=== PATIENT | female | born 1995 | race Caucasian/White ===

== ENCOUNTER 2019-10-27 12:49 | Emergency (ER) | payer BC, OTHER, SELFPAY ==
[2019-10-27 12:55] VITALS: BP 129/66; PULSE 60; RESP 19; TEMP 36.7; O2SAT 99; BMI 29.0
--- NOTE | 2019-10-27 13:02 | ED_ITS ---
HPI - Chest Pain <BETO Adkins - Last Filed: 10/27/19 23:24> General Chief Complaint: Chest Pain Stated Complaint: chest pain Time Seen by Provider: 10/27/19 12:50 Source: patient Mode of arrival: Ambulatory Limitations: no limitations History of Present Illness HPI narrative: This is a 24-year-old female, nonsmoker, who presents to ED with chest pain and short of breath that has been worsening over 1 year. Patient reports she has been having exertional short of breath with running and walking up the stairs. 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 She denies recent known Covid virus exposure, fever, coughing, chills, nausea, vomiting, diaphoresis. Patient denies recent travel, taking control pills, history of blood clots, or prolonged bed rest. Patient reports usually pain is worse during at nights and she had moderately severe dull, intermittent right-sided chest pain last night and she also woke up with discomfort this morning at 9:30 a.m.. She had Kerwin fundoplication at age 12 due to acid reflux. She is currently visiting from [place] and has been quarantined herself at home. LMP current and denies concerns for . Related Data Home Medications Medication Instructions Recorded Confirmed ACETAMINOPHEN 650 mg PO PRN #0 08/02/12 Review of Systems <BETO Adkins - Last Filed: 10/27/19 23:24> Review of Systems Narrative: General: Denies fever, chills, fatigue, malaise, sweats. HEENT: Denies sinus pain, ear pain, sore throat, difficulty swallowing, dizziness. Respiratory: See HPI Cardiovascular: See HPI Gastrointestinal: Denies nausea, vomiting, abdominal pain, diarrhea, constipation, melena. : Denies dysuria, frequency, incontinence, hematuria, urinary retention. Musculoskeletal: Denies weakness, joint pain or bony pain. Skin: Denies rash, skin lesions, or other. Neurologic: Denies weakness, headache, numbness, change in speech, confusion, seizures, incoordination. Psychiatric: No concerning psychosocial issues. 12-point review of systems is negative except for those stated above. Patient History <BETO Adkins - Last Filed: 10/27/19 23:24> Medical History Acid reflux (Acute) Surgical History History of Kerwin fundoplication (Acute) Social History Smoking Status: Never smoker Smoking Status: Never smoker Exam <BETO Adkins - Last Filed: 10/27/19 23:24> Narrative Exam Narrative: GEN: Alert, oriented x 3, well appearing and nourished, and in no acute distress. Head: Normal cephalic, atraumatic. No scalp or temporal tenderness, palpable mass or rash. EYES: Pupils are equal, round, and reactive to light and accommodation. E xtraocular muscles are intact bilaterally. There is no subconjunctival hemorrhage, exudate and sclera non-icteric. ENT: Hearing grossly intact. Nose without bleeding, purulent discharge. Mucous membrane moist, no mucosal lesion. Throat without erythema, tonsillar hypertrophy or exudate. Uvula in midline, airway patent. Neck: Trachea in midline. No JVD, non-tender without lymphadenopathy. No masses or thyroid megaly. Supple, non-tender and no meningeal signs. CARDIAC: Normal regular rate and rhythm without murmurs, gallops, or rubs. No chest wall tenderness. No peripheral edema, cyanosis or pallor. Capillary refill is less than 2 seconds. RESPIRATORY: Lungs are clear to auscultate bilaterally. No cough, wheezes, rales, or rhonchi. No stridor, respiratory distress, increase work of breathing, or accessary muscle used. ABD: Abdomen soft, nontender and non-distended. No guarding or rebound tenderness to palpate. Bowel sounds are normal in all 4 quadrants. There is no palpable masses or organomegaly. EXT: Full painless ROM of all extremities with no loss of sensation, swelling, strength, effusion or edema. SKIN: Warm, dry, normal color for patient. No erythema, lesions or rash over visible areas. BACK: Nontender without deformity or crepitance. No flank tenderness. NEUROLOGICAL: Alert and oriented to place, time and person. Sensation and motor function intact bilaterally. No facial droops, dysphasia. PSYCHIATRIC: Good judgement and reason, without hallucinations, abnormal affect or abnormal behaviors during the examination. Patient is not suicidal. Initial Vital Signs Initial Vital Signs: Vital Signs Temperature 98.0 F 10/27/19 12:55 Pulse Rate 60 10/27/19 12:55 Respiratory Rate 19 10/27/19 12:55 Blood Pressure 129/66 10/27/19 12:55 Pulse Oximetry 99 10/27/19 12:55 <Elizabeth Vides MD - Last Filed: 10/28/19 07:21> Initial Vital Signs Initial Vital Signs: Vital Signs Temperature 98.0 F 10/27/19 12:55 Pulse Rate 60 10/27/19 12:55 Respiratory Rate 19 10/27/19 12:55 Blood Pressure 129/66 10/27/19 12:55 Pulse Oximetry 99 10/27/19 12:55 Scores <BETO Adkins - Last Filed: 10/27/19 23:24> GCS Hamilton coma scale eye opening: Spontaneous Hamilton coma scale verbal response: Orientated Blane coma scale motor response: Obey commands Hamilton coma scale total score: 15 HEART Score Heart Score history: Slightly Suspicious Heart Score EKG: Normal Heart Score Age: < 45 years old Heart Score risk factors: No known risk factors Heart Score troponin: < or = to normal limit Heart Score Total: 0 PERC Score Age greater than or equal to 50 years: No Heart rate greater than or equal to 100 bpm: No Room Air O2 Sat less than 95%: No Unilateral leg swelling: No Recent trauma or surgery: No Hemoptysis: No Prior PE or DVT: No Hormone Use: No Total PERC Score: 0 Wells' Criteria for PE Clinical signs and symptoms of DVT: No PE is #1 Dx or equally likely: No Heart rate > 100: No Immobilization at least 3 days or surg in previous 4 weeks: No History of PE or DVT: No Hemoptysis: No Malignancy w/Treatment within 6 months or palliative: No Wells' PE Score total: 0 Course <BETO Adkins - Last Filed: 10/27/19 23:24> Orders Ordered: Discontinued Medications Ketorolac Tromethamine (Toradol) 15 mg IV NOW ONE Stop: 10/27/19 14:05 Last Admin: 10/27/19 14:20 Dose: 15 mg Documented by: ALESHIA Ketorolac Tromethamine (Toradol) 15 mg IV NOW ONE Stop: 10/27/19 14:15 Last Admin: 10/27/19 15:23 Dose: Not Given Documented by: DIANNA Pantoprazole Sodium (Protonix) 40 mg IV NOW ONE Stop: 10/27/19 14:05 Last Admin: 10/27/19 14:24 Dose: 40 mg Documented by: ALESHIA Vital Signs Vital signs: Vital Signs - 8 hr 10/27/19 12:55 10/27/19 13:44 Temperature 98.0 F Pulse Rate 60 58 L Respiratory Rate 19 12 Blood Pressure 129/66 Blood Pressure [Right Arm] 130/61 Pulse Oximetry 99 100 <Elizabeth Vides MD - Last Filed: 10/28/19 07:21> Orders Ordered: Discontinued Medications Ketorolac Tromethamine (Toradol) 15 mg IV NOW ONE Stop: 10/27/19 14:05 Last Admin: 10/27/19 14:20 Dose: 15 mg Documented by: ALESHIA Ketorolac Tromethamine (Toradol) 15 mg IV NOW ONE Stop: 10/27/19 14:15 Last Admin: 10/27/19 15:23 Dose: Not Given Documented by: DIANNA Pantoprazole Sodium (Protonix) 40 mg IV NOW ONE Stop: 10/27/19 14:05 Last Admin: 10/27/19 14:24 Dose: 40 mg Documented by: ALESHIA Vital Signs Vital signs: Vital Signs - 8 hr 10/27/19 12:55 10/27/19 13:44 Temperature 98.0 F Pulse Rate 60 58 L Respiratory Rate 19 12 Blood Pressure 129/66 Blood Pressure [Right Arm] 130/61 Pulse Oximetry 99 100 MDM - Chest Pain <BETO Adkins - Last Filed: 10/27/19 23:24> Differential Diagnosis Differential diagnosis: Likely atypical chest pain, costochondritis and other (GERD, anxiety, electrolytes imbalance) Medical Records Data Attestation: I reviewed the patient's medical records. Lab Data Attestation: I reviewed the patient's lab results. Result diagrams: 10/27/19 13:00 10/27/19 13:00 Labs: Lab Results 10/27/19 10/27/19 10/27/19 Range/Units 13:00 13:00 13:00 WBC 7.6 (4.5-11.0) X10^3/uL RBC 4.78 (4.0-5.2) X10^6/uL Hgb 14.9 (12.0-16.0) g/dL Hct 44.0 (36-46) % MCV 92.0 (80-100) fL MCH 31.1 (26-34) PG MCHC 33.8 (30-36) % RDW 13.3 (11.6-14.8) % Plt Count 206 (150-400) X10^3/uL Neut % (Auto) 69.4 (50-75) % Lymph % (Auto) 22.0 L (25-40) % Carolina % (Auto) 7.6 (3-14) % Eos % (Auto) 0.6 L (2-4) % Baso % (Auto) 0.4 (0-2) % Neut # (Auto) 5300 (0148-2207) /uL Lymph # (Auto) 1700 (2915-3923) /uL Carolina # (Auto) 600 (0-900) /uL Eos # (Auto) 0 (0-450) /uL Baso # (Auto) 0 (0-100) /uL PT 12.7 (10.1-12.7) SECONDS INR 1.1 (0.9-1.3) APTT 34 (26.4-36.2) SECONDS Sodium 140 (137-145) mmol/L Potassium 3.8 (3.4-5.1) mmol/L Chloride 103 (98-107) mmol/L Carbon Dioxide 26 (22-32) mmol/L BUN 11 (7-17) mg/dL Creatinine 0.65 (0.52-1.04) mg/dL Estimated GFR > 60.0 (>60) mL/min BUN/Creatinine Ratio 16.9 (6-22) Glucose 94 (70-100) mg/dL Calcium 9.9 (8.4-10.2) mg/dL Magnesium (1.6-2.3) mg/dL Total Bilirubin 0.8 (0.2-1.3) mg/dL AST 28 (14-36) IU/L ALT 17 (<35) IU/L Alkaline Phosphatase 64 (38-126) U/L Total Creatine Kinase 54 (30-135) U/L CK-MB (CK-2) TNP CK-MB (CK-2) Rel Index TNP Troponin I < 0.012 (0.01-0.034) ng/mL Total Protein 8.4 H (6.3-8.2) g/dL Albumin 4.9 (3.5-5.0) g/dL Globulin 3.5 (1.7-4.1) g/dL Albumin/Globulin Ratio 1.4 (1.0-2.8) Lipase 96 (23-300) U/L 10/27/19 Range/Units 13:00 WBC (4.5-11.0) X10^3/uL RBC (4.0-5.2) X10^6/uL Hgb (12.0-16.0) g/dL Hct (36-46) % MCV (80-100) fL MCH (26-34) PG MCHC (30-36) % RDW (11.6-14.8) % Plt Count (150-400) X10^3/uL Neut % (Auto) (50-75) % Lymph % (Auto) (25-40) % Carolina % (Auto) (3-14) % Eos % (Auto) (2-4) % Baso % (Auto) (0-2) % Neut # (Auto) (8664-3201) /uL Lymph # (Auto) (5086-7870) /uL Carolina # (Auto) (0-900) /uL Eos # (Auto) (0-450) /uL Baso # (Auto) (0-100) /uL PT (10.1-12.7) SECONDS INR (0.9-1.3) APTT (26.4-36.2) SECONDS Sodium (137-145) mmol/L Potassium (3.4-5.1) mmol/L Chloride (98-107) mmol/L Carbon Dioxide (22-32) mmol/L BUN (7-17) mg/dL Creatinine (0.52-1.04) mg/dL Estimated GFR (>60) mL/min BUN/Creatinine Ratio (6-22) Glucose (70-100) mg/dL Calcium (8.4-10.2) mg/dL Magnesium 2.2 (1.6-2.3) mg/dL Total Bilirubin (0.2-1.3) mg/dL AST (14-36) IU/L ALT (<35) IU/L Alkaline Phosphatase (38-126) U/L Total Creatine Kinase (30-135) U/L CK-MB (CK-2) CK-MB (CK-2) Rel Index Troponin I (0.01-0.034) ng/mL Total Protein (6.3-8.2) g/dL Albumin (3.5-5.0) g/dL Globulin (1.7-4.1) g/dL Albumin/Globulin Ratio (1.0-2.8) Lipase (23-300) U/L Imaging Data Chest x-ray: Radiologist's Impression: [address] [address] XRay Report Signed Patient: Yanet Cross [facility]#: [id number] : 1995Acct:[id number] Age/Sex: te of Service: 10/27/19 Loc: ED Accession Number: [id number] Procedure: XR chest 1V Ordering Provider: Giancarlo Leos PROCEDURE: XR CHEST 1V INDICATIONS: chest pain TECHNIQUE: One view of the chest was acquired. COMPARISON: None. FINDINGS: Surgical changes and devices: None. Lungs and pleura: Lungs are clear. No pleural effusions or pneumothorax. Mediastinum: Mediastinal contours appear normal. Heart size is normal. Bones and chest wall: No suspicious bony lesions. Overlying soft tissues appear unremarkable. IMPRESSION: No acute cardiopulmonary pathology. Dictated by: Mike Nobles M.D. on 10/27/2019 at 13:14 Approved by: Mike Nobles M.D. on 10/27/2019 at 13:16 ECG Data Attestation: I personally reviewed and interpreted this ECG as follows: Prior ECG tracings: not available for review Interpretation: Normal sinus rhythm rate at 56. [place] interval normal, QRS duration 96, QT/QTC 423/416. No ST elevation or depression noted MDM Narrative Medical decision making narrative: This is a 24-year-old female who has history of eating disorders (anorexia) who presents to ED with chest/epigastric pain for over a year who presents to ED with worsening symptoms for last 1-2 weeks. Patient reports she also has a short of breath with exertion and she exercise regularly with running. Patient denies other cardiac associated symptoms or recent illness, know exposure to Covid, diarrhea, fever, cough, myalgia. Patient reports her symptoms worse at nights. Has history of Kerwin fundoplication at age 12. EKG shows normal sinus rhythm rate in [address] elevation or depression. Cardiac enzymes were negative. Chest x-ray was negative for acute findings. Normal CBC, CMP, lipase and liver function test. Patient was medicated with IV Pantoprazole and Ketolac and patient reports her symptoms mostly resolved before discharged to home. The Well's criteria for PE, PERC score are 0 and HEART score is 0. Also, given her symptoms going on for nearly 1 year, it is unlikely patient has pulmonary embolism. It is likely patient has acid reflux or costochondritis and patient was discharged to home with return precautions and [id number] omeprazole to use next 2 weeks. Patient advised to follow-up with primary care physician especially if her symptoms persists. Patient verbalized understanding and agreement with treatment plan. <Elizabeth Vides MD - Last Filed: 10/28/19 07:21> Lab Data Labs: Lab Results 10/27/19 10/27/19 10/27/19 Range/Units 13:00 13:00 13:00 WBC 7.6 (4.5-11.0) X10^3/uL RBC 4.78 (4.0-5.2) X10^6/uL Hgb 14.9 (12.0-16.0) g/dL Hct 44.0 (36-46) % MCV 92.0 (80-100) fL MCH 31.1 (26-34) PG MCHC 33.8 (30-36) % RDW 13.3 (11.6-14.8) % Plt Count 206 (150-400) X10^3/uL Neut % (Auto) 69.4 (50-75) % Lymph % (Auto) 22.0 L (25-40) % Carolina % (Auto) 7.6 (3-14) % Eos % (Auto) 0.6 L (2-4) % Baso % (Auto) 0.4 (0-2) % Neut # (Auto) 5300 (6639-4422) /uL Lymph # (Auto) 1700 (7494-9920) /uL Carolina # (Auto) 600 (0-900) /uL Eos # (Auto) 0 (0-450) /uL Baso # (Auto) 0 (0-100) /uL PT 12.7 (10.1-12.7) SECONDS INR 1.1 (0.9-1.3) APTT 34 (26.4-36.2) SECONDS Sodium 140 (137-145) mmol/L Potassium 3.8 (3.4-5.1) mmol/L Chloride 103 (98-107) mmol/L Carbon Dioxide 26 (22-32) mmol/L BUN 11 (7-17) mg/dL Creatinine 0.65 (0.52-1.04) mg/dL Estimated GFR > 60.0 (>60) mL/min BUN/Creatinine Ratio 16.9 (6-22) Glucose 94 (70-100) mg/dL Calcium 9.9 (8.4-10.2) mg/dL Magnesium (1.6-2.3) mg/dL Total Bilirubin 0.8 (0.2-1.3) mg/dL AST 28 (14-36) IU/L ALT 17 (<35) IU/L Alkaline Phosphatase 64 (38-126) U/L Total Creatine Kinase 54 (30-135) U/L CK-MB (CK-2) TNP CK-MB (CK-2) Rel Index TNP Troponin I < 0.012 (0.01-0.034) ng/mL Total Protein 8.4 H (6.3-8.2) g/dL Albumin 4.9 (3.5-5.0) g/dL Globulin 3.5 (1.7-4.1) g/dL Albumin/Globulin Ratio 1.4 (1.0-2.8) Lipase 96 (23-300) U/L 10/27/19 Range/Units 13:00 WBC (4.5-11.0) X10^3/uL RBC (4.0-5.2) X10^6/uL Hgb (12.0-16.0) g/dL Hct (36-46) % MCV (80-100) fL MCH (26-34) PG MCHC (30-36) % RDW (11.6-14.8) % Plt Count (150-400) X10^3/uL Neut % (Auto) (50-75) % Lymph % (Auto) (25-40) % Carolina % (Auto) (3-14) % Eos % (Auto) (2-4) % Baso % (Auto) (0-2) % Neut # (Auto) (5525-0990) /uL Lymph # (Auto) (5255-3308) /uL Carolina # (Auto) (0-900) /uL Eos # (Auto) (0-450) /uL Baso # (Auto) (0-100) /uL PT (10.1-12.7) SECONDS INR (0.9-1.3) APTT (26.4-36.2) SECONDS Sodium (137-145) mmol/L Potassium (3.4-5.1) mmol/L Chloride (98-107) mmol/L Carbon Dioxide (22-32) mmol/L BUN (7-17) mg/dL Creatinine (0.52-1.04) mg/dL Estimated GFR (>60) mL/min BUN/Creatinine Ratio (6-22) Glucose (70-100) mg/dL Calcium (8.4-10.2) mg/dL Magnesium 2.2 (1.6-2.3) mg/dL Total Bilirubin (0.2-1.3) mg/dL AST (14-36) IU/L ALT (<35) IU/L Alkaline Phosphatase (38-126) U/L Total Creatine Kinase (30-135) U/L CK-MB (CK-2) CK-MB (CK-2) Rel Index Troponin I (0.01-0.034) ng/mL Total Protein (6.3-8.2) g/dL Albumin (3.5-5.0) g/dL Globulin (1.7-4.1) g/dL Albumin/Globulin Ratio (1.0-2.8) Lipase (23-300) U/L Discharge Plan Departure Patient Disposition: Home Clinical Impression: Atypical chest pain GERD (gastroesophageal reflux disease) Qualifiers: Esophagitis presence: esophagitis presence not specified Qualified Code(s): K21.9 - Gastro-esophageal reflux disease without esophagitis Discharge Date/Time: 10/27/19 15:36 Instructions: DI for Gastroesophageal Reflux Disease (GERD), DI for Atypical Chest Pain Activity Restrictions/Additional Instructions: You have been diagnosed with [atypical chest pain, likely GERD. EKG, chest x- ray, lab test include being cardiac enzymes tests were assuring. You felt better after pantopraxole and toradol medications. Vital signs been stable in ED.]. What to do: *Take your medications as directed. Please take xysm-xor-echasdr omeprazole once a day 30 minutes before meal daily for next 2 weeks. You could take [id number] Tylenol 650-1000 mg up to 3 times a day as needed for discomfort. IBUprofen/Motrin 400mg as needed for discomfort but with food to protect GI tract. *Follow up with your primary care provider in 2-3 days, call for an appointment. Let them know you were seen in the ED and that we asked you to be seen in follow up. *Return to ED if you have any new, worsening, or concerning symptoms, such as [increasing pain, different chest pain, worsening with difficulty breathing, fever, unable to tolerate fluids, or any acute concerns]. Prescriptions: No Action ACETAMINOPHEN 650 mg PO PRN Qty: 0 RF: 0 Referrals: [facility] [Outside] Titus Vora MD [Primary Care Provider] -
--- NOTE | 2019-10-27 13:12 | PC.NURSE ---
patient reported the beggining of an eating disorder. It started 6-9 months ago. She states the she doesn't feel like her job allows her time to eat. As she slowly began eating less and less, she noticed she was losing weight, reinforcing her lack of eating habit.
[2019-10-27 13:24] LABS: Add Manual Diff / Slide Review NO; Basophils Absolute Auto 0 /uL (0-100); Basophils Percent Auto 0.4 % (0-2); Eosinophils Absolute Auto 0 /uL (0-450); Eosinophils Percent Auto 0.6 % (2-4); Hemoglobin 14.9 g/dL (12.0-16.0); Lymphocytes Absolute Auto 1700 /uL (1100-4500); Mean Corpuscular HGB Conc 33.8 % (30-36); Mean Corpuscular Hemoglobin 31.1 PG (26-34); Monocytes Absolute Auto 600 /uL (0-900); Monocytes Percent Auto 7.6 % (3-14); Neutrophils Absolute Auto 5300 /uL (1500-7000); Neutrophils Percent Auto 69.4 % (50-75); Platelet Count 206 X10^3/uL (150-400); Red Blood Cell Count 4.78 X10^6/uL (4.0-5.2); Red Cell Distribution Width 13.3 % (11.6-14.8); White Blood Cell Count 7.6 X10^3/uL (4.5-11.0)
[2019-10-27 13:41] LABS: INR 1.1 (0.9-1.3); Prothrombin Time 12.7 SECONDS (10.1-12.7)
[2019-10-27 13:44] VITALS: BP 130/61; PULSE 58; RESP 12; O2SAT 100
[2019-10-27 13:44] LABS: PTT Partial Thromboplastin Tim 34 SECONDS (26.4-36.2)
[2019-10-27 13:48] LABS: Alanine Aminotransferase 17 IU/L (<35); Albumin 4.9 g/dL (3.5-5.0); Albumin Globulin Ratio 1.4 (1.0-2.8); Alkaline Phosphatase 64 U/L (38-126); Aspartate Aminotransferase 28 IU/L (14-36); BUN Creatinine Ratio 16.9 (6-22); Bilirubin Total 0.8 mg/dL (0.2-1.3); Blood Urea Nitrogen 11 mg/dL (7-17); Calcium 9.9 mg/dL (8.4-10.2); Carbon Dioxide 26 mmol/L (22-32); Chloride 103 mmol/L (98-107); Creatine Kinase 54 U/L (30-135); Estimated Glomerular Filt Rate > 60.0 mL/min (>60); Globulin 3.5 g/dL (1.7-4.1); Glucose 94 mg/dL (70-100); HEMOLYSIS < 15 (0-50); Lipase 96 U/L (23-300); Potassium 3.8 mmol/L (3.4-5.1); Sodium 140 mmol/L (137-145); Total Protein 8.4 g/dL (6.3-8.2)
[2019-10-27 13:49] LABS: Magnesium 2.2 mg/dL (1.6-2.3)
[2019-10-27 13:59] LABS: Troponin I < 0.012 ng/mL (0.01-0.034)
[2019-10-27] MEDS: KETOROLAC 60 MG/2 ML VIAL 15 MG IV (14:20)
[2019-10-27] MEDS: PANTOPRAZOLE 40 MG VIAL IV (14:24)
[2019-10-27 14:32] VITALS: BP 130/61; PULSE 62; RESP 14; O2SAT 99
== END 2019-10-27 15:36 | disposition home or self-care (01) ==
PROVIDERS: Emergency Provider Nurse Practitioner Family; PCP Family Medicine
DX: R07.89 Other chest pain (principal); K21.9 Gastro-esophageal reflux disease without esophagitis; F50.9 Eating disorder, unspecified; R06.02 Shortness of breath
CPT/HCPCS: 36415; 71045; 80053; 82550; 83690; 83735; 84484; 85025; 85610; 85730; 93005; 96374; 96375; 99284; C9113; J1885